=== PATIENT | female | born 1930 | race Caucasian/White ===

== ENCOUNTER 2017-10-07 17:53 | Inpatient (IN) | payer MEDICARE ==
[~2017-10-07] VITALS: Ht 160 cm; Wt 65.8 kg
[2017-10-07 22:28] VITALS: BP 175/76
[2017-10-07 22:32] VITALS: BP 175/76
[2017-10-07] MEDS ORDERED: LORA-445 PO (23:27)
[2017-10-07] MEDS ORDERED: CIPR500T8 PO (23:27)
[2017-10-07] MEDS ORDERED: HYDR25TA11 PO (23:27)
[2017-10-07] MEDS ORDERED: LANS15CA60 PO (23:27)
[2017-10-07] MEDS ORDERED: VERA360C2 PO (23:27)
[2017-10-07] MEDS ORDERED: METO-282 PO (23:27)
[2017-10-07] MEDS ORDERED: SODIUM CHLORIDE 0.9% 1,000 ML IV SCH (23:28)
[2017-10-07] MEDS ORDERED: ONDANSETRON 2MG/ML, 2ML IVPush PRN (23:30)
[2017-10-07] MEDS ORDERED: hydrALAzine 20 MG/ML, 1ML IVPush PRN (23:30)
[2017-10-07] MEDS ORDERED: PLEASE ENTER ALLERGIES MC SCH (23:45)
[2017-10-08] MEDS ORDERED: LORazepam 0.5MG TABLET PO SCH
[2017-10-08 00:34] VITALS: BP 151/72
[2017-10-08 00:43] LABS: TROPONIN I 0.119 ng/mL (0.000-0.045)
[2017-10-08] MEDS: CIPROFLOXACIN 250 MG TABLET PO SCH ×3 (00:43→20:59)
[2017-10-08] MEDS: PANTOPRAZOLE 20MG TABLET PO SCH ×2 (00:43→20:59)
[2017-10-08] MEDS: VERAPAMIL ER 180MG TABLET.ER PO SCH ×2 (00:43→20:59)
[2017-10-08] MEDS: METOPROLOL SUCCINATE 25 MG TAB.ER.24H PO SCH ×2 (00:44→20:59)
[2017-10-08 05:40] LABS: BASOPHILS # (AUTO) 0.03 x10^3/uL (0-0.1); BASOPHILS % (AUTO) 1 % (0-1); EOSINOPHILS # (AUTO) 0.37 x10^3/uL (0-0.4); EOSINOPHILS % (AUTO) 7 % (1-7); LYMPHOCYTES # (AUTO) 1.08 x10^3/uL (1-3.4); LYMPHOCYTES % (AUTO) 20 % (22-44); MD NO; MEAN CORPUSCULAR HEMOGLOBIN 23.3 pg (27.0-34.8); MEAN CORPUSCULAR HGB CONC 31.9 g/dL (32.4-35.8); MEAN PLATELET VOLUME 6.8 fL (7.4-10.4); MONOCYTES # (AUTO) 0.83 x10^3/uL (0.2-0.8); MONOCYTES % (AUTO) 16 % (2-9); NEUTROPHILS # (AUTO) 2.97 x10^3/uL (1.8-6.8); NEUTROPHILS % (AUTO) 56 % (42-75); PLATELET COUNT 404 x10^3/uL (130-400); RED BLOOD COUNT 3.79 x10^6/uL (3.82-5.3); RED CELL DISTRIBUTION WIDTH 21.2 % (9.6-15.2)
[2017-10-08 05:52] LABS: CHLORIDE 103 mmol/L (98-107)
[2017-10-08 06:02] LABS: ALANINE AMINOTRANSFERASE 17 U/L (12-78); ALBUMIN 2.8 g/dL (3.4-5.0); ALKALINE PHOSPHATASE 73 U/L (45-117); ANION GAP 7 mmol/L (5-15); BILIRUBIN,TOTAL 0.3 mg/dL (0.2-1.0); CALCIUM 8.2 mg/dL (8.5-10.1); CREATININE 0.89 mg/dL (0.55-1.02); TOTAL PROTEIN 6.3 g/dL (6.4-8.2)
[2017-10-08 07:30] VITALS: BP 146/66
[2017-10-08] MEDS ORDERED: PANTOPRAZOLE 40 MG IV IVPush SCH (09:00)
[2017-10-08 12:27] VITALS: BP 127/64
[2017-10-08] MEDS ORDERED: ACETAMINOPHEN 500 MG TABLET PO ONE (14:00)
[2017-10-08] MEDS: LORazepam 0.5MG TABLET PO PRN (16:17)
[2017-10-08 18:38] VITALS: BP 151/70
[2017-10-09 02:22] VITALS: BP 133/68
[2017-10-09 07:00] VITALS: BP 111/78
[2017-10-09] MEDS: CIPROFLOXACIN 250 MG TABLET PO SCH ×2 (08:57→20:28)
[2017-10-09 12:30] VITALS: BP 142/72
[2017-10-09 16:33] VITALS: BP 138/80
[2017-10-09 18:47] VITALS: BP 142/74
[2017-10-09] MEDS: LORazepam 0.5MG TABLET PO PRN (20:28)
[2017-10-09] MEDS: LOSARTAN 50MG TABLET PO SCH (20:28)
[2017-10-09] MEDS: PANTOPRAZOLE 20MG TABLET PO SCH (20:28)
[2017-10-10 02:17] VITALS: BP 151/77
[2017-10-10 06:31] VITALS: BP 154/68
[2017-10-10] MEDS ORDERED: REGADENOSON 0.4 MG/5 ML SYRINGE ONE (08:24)
[2017-10-10] MEDS: CIPROFLOXACIN 250 MG TABLET PO SCH ×2 (08:30→20:10)
[2017-10-10] MEDS: LORazepam 0.5MG TABLET PO PRN ×2 (11:25→20:10)
[2017-10-10] MEDS: HYDROCHLOROTHIAZIDE 25 MG TABLET PO SCH (11:25)
[2017-10-10 12:15] VITALS: BP 124/75
[2017-10-10] MEDS: MOVIPREP POWDER 1 PREP KIT PO SCH (18:00)
[2017-10-10 19:51] VITALS: BP 175/88
[2017-10-10] MEDS: PANTOPRAZOLE 20MG TABLET PO SCH (20:10)
[2017-10-10] MEDS: LOSARTAN 50MG TABLET PO SCH (20:10)
[2017-10-10] MEDS ORDERED: MOVIPREP POWDER 1 PREP KIT PO SCH (21:00)
[2017-10-11 03:25] VITALS: BP 123/75
[2017-10-11] MEDS: MOVIPREP POWDER 1 PREP KIT PO SCH ×3 (06:00→20:19)
[2017-10-11 09:14] VITALS: BP 142/76
[2017-10-11] MEDS ORDERED: MIDAZOLAM 1 MG/ML, 2ML ONE (09:55)
[2017-10-11] MEDS ORDERED: FENTANYL PF 100 MCG/2ML ONE (09:55)
[2017-10-11] MEDS ORDERED: KETAMINE 10 MG/ML, 20ML ONE (10:18)
[2017-10-11] MEDS ORDERED: DEXAMETHASONE 4 MG/ML, 1ML ONE (10:18)
[2017-10-11] MEDS ORDERED: ONDANSETRON 2MG/ML, 2ML ONE (10:18)
[2017-10-11] MEDS ORDERED: PROPOFOL 10 MG/ML, 20ML ONE (10:18)
[2017-10-11] MEDS ORDERED: LABETALOL 5MG/ML, 20ML IV PRN (11:30)
[2017-10-11] MEDS ORDERED: ACETAMINOPHEN 325 MG TABLET PO PRN (11:30)
[2017-10-11] MEDS ORDERED: PROMETHAZINE 12.5 MG SUPP PR PRN (11:30)
[2017-10-11] MEDS ORDERED: hydrALAzine 20 MG/ML, 1ML IV PRN (11:30)
[2017-10-11] MEDS ORDERED: OXYcodone 5 MG/5 ML ORAL.SOL UDC PO PRN (11:30)
[2017-10-11] MEDS ORDERED: FENTANYL PF 100 MCG/2ML IV PRN (11:30)
[2017-10-11] MEDS ORDERED: HYDROmorphone 1 MG/ML, 1ML IV PRN (11:30)
[2017-10-11] MEDS ORDERED: MEPERIDINE/PF 25MG/0.5ML IVPush PRN (11:30)
[2017-10-11] MEDS ORDERED: ONDANSETRON 2MG/ML, 2ML IVPush PRN (11:30)
[2017-10-11] MEDS: IRON SUCROSE COMPLEX 100MG/5ML IV SCH (12:51)
[2017-10-11] MEDS: LOSARTAN 50MG TABLET PO SCH (12:51)
[2017-10-11] MEDS: CIPROFLOXACIN 250 MG TABLET PO SCH ×2 (12:51→20:19)
[2017-10-11] MEDS: HYDROCHLOROTHIAZIDE 25 MG TABLET PO SCH (12:52)
[2017-10-11 13:50] VITALS: BP 155/70
[2017-10-11] MEDS: SUCRALFATE 1 GM/10 ML UDC PO SCH ×2 (17:25→20:19)
[2017-10-11 20:22] VITALS: BP 148/71
[2017-10-11] MEDS ORDERED: PANTOPRAZOLE 20MG TABLET PO SCH (21:00)
[2017-10-12 00:08] VITALS: BP 127/71
[2017-10-12] MEDS: LORazepam 0.5MG TABLET PO PRN (00:11)
[2017-10-12 05:08] LABS: BASOPHILS # (AUTO) 0.02 x10^3/uL (0-0.1); BASOPHILS % (AUTO) 0 % (0-1); EOSINOPHILS # (AUTO) 0.04 x10^3/uL (0-0.4); EOSINOPHILS % (AUTO) 1 % (1-7); LYMPHOCYTES # (AUTO) 1.36 x10^3/uL (1-3.4); LYMPHOCYTES % (AUTO) 19 % (22-44); MD NO; MEAN CORPUSCULAR HGB CONC 31.7 g/dL (32.4-35.8); MEAN CORPUSCULAR VOLUME 72.7 fL (80-100); MEAN PLATELET VOLUME 7.1 fL (7.4-10.4); MONOCYTES # (AUTO) 0.83 x10^3/uL (0.2-0.8); MONOCYTES % (AUTO) 12 % (2-9); NEUTROPHILS # (AUTO) 4.91 x10^3/uL (1.8-6.8); NEUTROPHILS % (AUTO) 69 % (42-75); PLATELET COUNT 426 x10^3/uL (130-400); RED BLOOD COUNT 4.33 x10^6/uL (3.82-5.3); RED CELL DISTRIBUTION WIDTH 21.4 % (9.6-15.2)
[2017-10-12 06:30] VITALS: BP 125/66
[2017-10-12] MEDS: SUCRALFATE 1 GM/10 ML UDC PO SCH (08:57)
[2017-10-12] MEDS: LOSARTAN 50MG TABLET PO SCH (08:58)
[2017-10-12] MEDS: HYDROCHLOROTHIAZIDE 25 MG TABLET PO SCH (08:58)
[2017-10-12] MEDS: CIPROFLOXACIN 250 MG TABLET PO SCH (08:58)
[2017-10-12] MEDS: IRON SUCROSE COMPLEX 100MG/5ML IV SCH (08:58)
[2017-10-12] MEDS ORDERED: PANT20TA3 PO (10:02)
[2017-10-12] MEDS ORDERED: LOSA50TA2 PO (10:02)
[2017-10-12] MEDS ORDERED: SUCR1ORA5 PO (10:02)
[2017-10-12] MEDS ORDERED: HYDR25TA6 PO (10:02)
== END 2017-10-12 11:26 | disposition home or self-care (01) | DRG 377 ==
LOC: 5SO 22:11 → DCLOUNGE 10-12 11:16
PROVIDERS: ADMIT Internal Medicine; ATTEND Hospitalist
PROC: 0DB68ZX Excision of Stomach, Via Natural or Artificial Opening Endoscopic, Diagnostic (ICD-10-PCS; 2017-10-11)
PROC: 0D758ZZ Dilation of Esophagus, Via Natural or Artificial Opening Endoscopic (ICD-10-PCS; 2017-10-11)
PROC: 0DJD8ZZ Inspection of Lower Intestinal Tract, Via Natural or Artificial Opening Endoscopic (ICD-10-PCS; principal; 2017-10-11 11:30)
DX: K25.4 Chronic or unspecified gastric ulcer with hemorrhage (principal); Q39.4 Esophageal web; G62.9 Polyneuropathy, unspecified; I24.8 Other forms of acute ischemic heart disease; K22.2 Esophageal obstruction; I11.0 Hypertensive heart disease with heart failure; I50.9 Heart failure, unspecified; I42.2 Other hypertrophic cardiomyopathy; N39.0 Urinary tract infection, site not specified; D50.0 Iron deficiency anemia secondary to blood loss (chronic); D64.9 Anemia, unspecified; I25.2 Old myocardial infarction; E78.5 Hyperlipidemia, unspecified; F41.9 Anxiety disorder, unspecified; I25.10 Atherosclerotic heart disease of native coronary artery without angina pectoris; I35.0 Nonrheumatic aortic (valve) stenosis; K21.9 Gastro-esophageal reflux disease without esophagitis; K44.9 Diaphragmatic hernia without obstruction or gangrene; K57.30 Diverticulosis of large intestine without perforation or abscess without bleeding; K58.9 Irritable bowel syndrome, unspecified; L29.9 Pruritus, unspecified; M19.90 Unspecified osteoarthritis, unspecified site; Z82.49 Family history of ischemic heart disease and other diseases of the circulatory system; Z87.891 Personal history of nicotine dependence; Z96.653 Presence of artificial knee joint, bilateral; Z90.710 Acquired absence of both cervix and uterus; Z87.440 Personal history of urinary (tract) infections
CPT/HCPCS: 36415; 78452; 80053; 82728; 83540; 83550; 83880; 84484; 85025; 88305; 93005; 93017; J1100; J1756; J2250; J2405; J2704; J2785; J3010; A9502; C9898; J7030; Q0177